=== PATIENT | male | born 1955 | race Caucasian/White ===

== ENCOUNTER → 2022-11-28 | Outpatient (CLI) | payer OTHER ==
--- NOTE | 2022-11-28 11:33 | FL ---
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 The cardiomedias tinal silhouette is within normal limits. There is elevation of the left hemidiaphragm. This is stab le and compared to previous chest radiograph. The left diaphragm contracts during inspiration. Both hemidiaphragms move together. Normal excursion is demonstrated of the left hemidiaphragm. The right diaphragm contracts during inspiration. Both hemidiaphragms move together. Normal excursion is demonstrated of the right hemidiaphragm. IMPRESSION: Normal sniff test.
== END | disposition home or self-care (01) ==
LOC: RADUSWWP 09:40
PROVIDERS: ATTEND Thoracic Surgery (Cardiothoracic Vascular Surgery)
DX: J98.6 Disorders of diaphragm (principal)
CPT/HCPCS: 76000

== ENCOUNTER 2024-05-11 06:14 | Emergency (ER) | payer MEDICARE ==
--- NOTE | 2024-05-11 06:44 | ED ---
General Adult HPI - General Chief complaint: Urogenital Stated complaint: UTI Time Seen by Provider: 05/11/24 06:16 Source: patient, EMS, RN notes reviewed Mode of arrival: EMS Limitations: no limitations - History of Present Illness Initial comments: 68-year-old male presents emergency department with chief complaint of dysuria, shaking chills. Patient states that this started last night. States he had uncontrollable states then he had the urge to urinate states it burned. States he did have some discomfort in his back but he states he always has back pain secondary to patient denies any localized abdominal pain no cough or cold-like symptoms at this time. He has not take anything for any recent fever. - Related Data Home Medications Medication Instructions Recorded Confirmed Cyclobenzaprine [Flexeril] 5 mg PO HS 05/11/24 05/11/24 Magnesium Oxide [Magox 400] 400 mg PO HS 05/11/24 05/11/24 Previous Rx's Medication Instructions Recorded Ciprofloxacin HCl [Cipro] 500 mg PO Q12HR #20 tablet 05/11/24 Allergies Allergy/AdvReac Type Severity Reaction Status Date / Time No Known Allergies Allergy Verified 05/11/24 09:43 Review of Systems ROS Statement: Those systems with pertinent positive or pertinent negative responses have been documented in the HPI. ROS Other: All systems not noted in ROS Statement are negative. Past Medical History Additional Past Medical History / Comment(s): TBI History of Any Multi-Drug Resistant Organisms: None Reported Additional Past Surgical History / Comment(s): Left knee sx. Smoking Status: Former smoker Past Alcohol Use History: None Reported Past Drug Use History: None Reported General Exam Limitations: no limitations General appearance: alert, in no apparent distress Head exam: Present: atraumatic, normocephalic, normal inspection Eye exam: Present: normal appearance, PERRL, EOMI. Absent: scleral icterus, conjunctival injection, periorbital swelling ENT exam: Present: normal exam, normal oropharynx, mucous membranes moist Neck exam: Present: normal inspection, full ROM. Absent: tenderness, meningismus, lymphadenopathy Respiratory exam: Present: normal lung sounds bilaterally. Absent: respiratory distress, wheezes, rales, rhonchi, stridor Cardiovascular Exam: Present: normal rhythm, tachycardia, normal heart sounds. Absent: systolic murmur, diastolic murmur, rubs, gallop, clicks GI/Abdominal exam: Present: soft, normal bowel sounds. Absent: distended, tenderness, guarding, rebound, rigid Back exam: Absent: CVA tenderness (R), CVA tenderness (L) Neurological exam: Present: alert, oriented X3 Course Vital Signs 05/11/24 05/11/24 05/11/24 06:17 06:46 07:25 Temperature 97.8 F 99.3 F Pulse Rate 106 H 90 Respiratory 18 17 Rate Blood Pressure 135/76 135/58 O2 Sat by Pulse 98 98 Oximetry 05/11/24 05/11/24 05/11/24 08:18 10:09 10:52 Temperature 98.5 F 98.2 F 98.3 F Pulse Rate 89 86 90 Respiratory 18 18 17 Rate Blood Pressure 113/58 105/54 106/62 O2 Sat by Pulse 97 96 97 Oximetry Medical Decision Making - Medical Decision Making Was pt. sent in by a medical professional or institution (, PA, WELLHEAD PUMPER, urgent care, hospital, or care home...) When possible be specific @ -No Did you speak to anyone other than the patient for history (EMS, parent, family, police, friend...)? What history was obtained from this source @ -No Did you review nursing and triage notes (agree or disagree)? Why? @ -I reviewed and agree with nursing and triage notes Were old charts reviewed (outside hosp., previous admission, EMS record, old EKG, old radiological studies, urgent care reports/EKG's, care home records)? Report findings @ -No old charts were reviewed Differential Diagnosis (chest pain, altered mental status, abdominal pain women, abdominal pain men, vaginal bleeding, weakness, fever, dyspnea, syncope, headache, dizziness, GI bleed, back pain, seizure, CVA, palpatations, mental he alth, musculoskeletal)? @ -Differential Abdominal Pain Men: Appendicitis, cholecystitis, diverticulosis, ischemic bowel, pancreatitis, hepatitis, UTI, gastroenteritis, AAA, incarcerated hernia, bowel obstruction, constipation, inflammatory bowel, hepatitis, peptic ulcer disease, splenic infarction, perforated viscus, testicular torsion, this is not meant to be an all-inclusive list EKG interpreted by me (3pts min.). @ -None X-rays interpreted by me (1pt min.). @ -None done CT interpreted by me (1pt min.). @ -None done U/S interpreted by me (1pt. min.). @ -None done What testing was considered but not performed or refused? (CT, X-rays, U/S, labs)? Why? @ -None What meds were considered but not given or refused? Why? @ -None Did you discuss the management of the patient with other professionals (professionals i.e. Dr., PA, WELLHEAD PUMPER, lab, RT, psych nurse, social media job titles, sales relationship manager, teacher, light armored vehicle officer, family preservation caseworker)? Give summary @ -No Was smoking cessation discussed for >3mins.? @ -No Was critical care preformed (if so, how long)? @ -No Were there social determinants of health that impacted care today? How? (Homelessness, low income, unemployed, alcoholism, drug addiction, transportation, low edu. Level, literacy, decrease access to med. care, snf, rehab)? @ -No Was there de-escalation of care discussed even if they declined (Discuss DNR or withdrawal of care, Hospice)? DNR status @ -No What co-morbidities impacted this encounter? (DM, HTN, Smoking, COPD, CAD, Cancer, CVA, ARF, Chemo, Hep., AIDS, mental health diagnosis, sleep apnea, morbid obesity)? @ -None Was patient admitted / discharged? Hospital course, mention meds given and route, prescriptions, significant lab abnormalities, going to OR and other pertinent info. @ -Discharge patient found to have evidence of urinary tract infection patient does not have any significant leukocytosis or lactic acidosis. Patient feels greatly improved this time patient offered admission patient declined states he feels comfortable discharge as he has no current complaints. Patient was given Rocephin prior to discharge. Blood cultures were drawn. Undiagnosed new problem with uncertain prognosis? @ -No Drug Therapy requiring intensive monitoring for toxicity (Heparin, Nitro, Insulin, Cardizem)? @ -No Were any procedures done? @ -No Diagnosis/symptom? @ -UTI Acute, or Chronic, or Acute on Chronic? @ -Acute Uncomplicated (without systemic symptoms) or Complicated (systemic symptoms)? @ -complicated Side effects of treatment? @ -No Exacerbation, Progression, or Severe Exacerbation? @ -No Poses a threat to life or bodily function? How? (Chest pain, [place], [place], pneumonia, PE, COPD, DKA, ARF, appy, cholecystitis, CVA, Diverticulitis, Homicidal, Suicidal, threat to staff... and all critical care pts) @ -No - Lab Data Result diagrams: 05/11/24 06:50 05/11/24 06:50 Lab Results 05/11/24 05/11/24 05/11/24 Range/Units 06:50 06:50 06:50 WBC 9.9 (3.8-10.6) k/uL RBC 4.72 (4.30-5.90) m/uL Hgb 14.8 (13.0-17.5) gm/dL Hct 42.2 (39.0-53.0) % MCV 89.4 (80.0-100.0) fL MCH 31.4 (25.0-35.0) pg MCHC 35.1 (31.0-37.0) g/dL RDW 12.4 (11.5-15.5) % Plt Count 90 L (150-450) k/uL MPV 7.8 Neutrophils % 94 % Lymphocytes % 1 % Monocytes % 3 % Eosinophils % 0 % Basophils % 0 % Neutrophils # 9.3 H (1.3-7.7) k/uL Lymphocytes # 0.1 L (1.0-4.8) k/uL Monocytes # 0.3 (0-1.0) k/uL Eosinophils # 0.0 (0-0.7) k/uL Basophils # 0.0 (0-0.2) k/uL Manual Slide Review Performed RBC Morphology Normal Sodium 131 L (137-145) mmol/L Potassium 4.0 (3.5-5.1) mmol/L Chloride 100 (98-107) mmol/L Carbon Dioxide 22 (22-30) mmol/L Anion Gap 9 mmol/L BUN 35 H (9-20) mg/dL Creatinine 1.00 (0.66-1.25) mg/dL Est GFR (CKD-EPI)AfAm 88 (>60 ml/min/1.73 sqM) Est GFR (CKD-EPI)NonAf 76 (>60 ml/min/1.73 sqM) Glucose 144 H (74-99) mg/dL Plasma Lactic Acid [place] 1.2 (0.7-2.0) mmol/L Calcium 8.8 (8.4-10.2) mg/dL Total Bilirubin 1.9 H (0.2-1.3) mg/dL AST 25 (17-59) U/L ALT 21 (4-49) U/L Alkaline Phosphatase 68 (38-126) U/L Total Protein 5.8 L (6.3-8.2) g/dL Albumin 3.5 (3.5-5.0) g/dL Lipase 46 (23-300) U/L Urine Color Urine Appearance (Clear) Urine pH (5.0-8.0) Ur Specific [place] (1.001-1.035) Urine Protein (Negative) Urine Glucose (UA) (Negative) Urine Ketones (Negative) Urine Blood (Negative) Urine Nitrite (Negative) Urine Bilirubin (Negative) Urine Urobilinogen (<2.0) mg/dL Ur Leukocyte Esterase (Negative) Urine RBC (0-5) /hpf Urine WBC (0-5) /hpf Urine WBC Clumps (None) /hpf Ur Squamous Epith Cells (0-4) /hpf Urine Bacteria (None) /hpf Urine Mucus (None) /hpf 05/11/24 Range/Units 09:55 WBC (3.8-10.6) k/uL RBC (4.30-5.90) m/uL Hgb (13.0-17.5) gm/dL Hct (39.0-53.0) % MCV (80.0-100.0) fL MCH (25.0-35.0) pg MCHC (31.0-37.0) g/dL RDW (11.5-15.5) % Plt Count (150-450) k/uL MPV Neutrophils % % Lymphocytes % % Monocytes % % Eosinophils % % Basophils % % Neutrophils # (1.3-7.7) k/uL Lymphocytes # (1.0-4.8) k/uL Monocytes # (0-1.0) k/uL Eosinophils # (0-0.7) k/uL Basophils # (0-0.2) k/uL Manual Slide Review RBC Morphology Sodium (137-145) mmol/L Potassium (3.5-5.1) mmol/L Chloride (98-107) mmol/L Carbon Dioxide (22-30) mmol/L Anion Gap mmol/L BUN (9-20) mg/dL Creatinine (0.66-1.25) mg/dL Est GFR (CKD-EPI)AfAm (>60 ml/min/1.73 sqM) Est GFR (CKD-EPI)NonAf (>60 ml/min/1.73 sqM) Glucose (74-99) mg/dL Plasma Lactic Acid [place] (0.7-2.0) mmol/L Calcium (8.4-10.2) mg/dL Total Bilirubin (0.2-1.3) mg/dL AST (17-59) U/L ALT (4-49) U/L Alkaline Phosphatase (38-126) U/L Total Protein (6.3-8.2) g/dL Albumin (3.5-5.0) g/dL Lipase (23-300) U/L Urine Color Yellow Urine Appearance Cloudy (Clear) Urine pH 5.5 (5.0-8.0) Ur Specific [place] 1.015 (1.001-1.035) Urine Protein Trace H (Negative) Urine Glucose (UA) Negative (Negative) Urine Ketones Trace H (Negative) Urine Blood Moderate H (Negative) Urine Nitrite Negative (Negative) Urine Bilirubin Negative (Negative) Urine Urobilinogen <2.0 (<2.0) mg/dL Ur Leukocyte Esterase Large H (Negative) Urine RBC 8 H (0-5) /hpf Urine WBC >182 H (0-5) /hpf Urine WBC Clumps Many H (None) /hpf Ur Squamous Epith Cells <1 (0-4) /hpf Urine Bacteria Moderate H (None) /hpf Urine Mucus Few H (None) /hpf Disposition Clinical Impression: UTI (urinary tract infection) Disposition: HOME SELF-CARE Condition: Stable Instructions (If sedation given, give patient instructions): Urinary Tract Infection in Men (ED) Additional Instructions: Please return to the Emergency Department if symptoms worsen or any other concerns. Prescriptions: Ciprofloxacin HCl [Cipro] 500 mg PO Q12HR #20 tablet Is patient prescribed a controlled substance at d/c from ED?: No Referrals: Nonstaff,Physician [Primary Care Provider] - 1-2 days Time of Disposition: 10:37
[2024-05-11] MEDS: ACETAMINOPHEN TAB 500 MG TAB PO STA (06:51)
[2024-05-11] MEDS: SODIUM CHLORIDE 0.9% 1,000 ML IV SCH (06:52)
[2024-05-11 06:58] LABS: Basophils % (A) 0 %; Eosinophils % (A) 0 %; HCT 42.2 % (39.0-53.0); HGB 14.8 gm/dL (13.0-17.5); Lymphocytes # (A) 0.1 k/uL (1.0-4.8); Lymphocytes % (A) 1 %; MCH 31.4 pg (25.0-35.0); MCHC 35.1 g/dL (31.0-37.0); MCV 89.4 fL (80.0-100.0); Mean Platelet Volume 7.8; Monocytes # (A) 0.3 k/uL (0-1.0); Monocytes % (A) 3 %; Neutrophils # (A) 9.3 k/uL (1.3-7.7); Neutrophils % (A) 94 %; RBC 4.72 m/uL (4.30-5.90); RDW 12.4 % (11.5-15.5); WBC 9.9 k/uL (3.8-10.6)
[2024-05-11 07:07] LABS: ALT 21 U/L (4-49); AST 25 U/L (17-59); African American GFR (CKD) 88 (>60 ml/min/1.73 sqM); Albumin 3.5 g/dL (3.5-5.0); Alkaline Phosphatase 68 U/L (38-126); Anion Gap 9 mmol/L; Blood Urea Nitrogen 35 mg/dL (9-20); Calcium 8.8 mg/dL (8.4-10.2); Carbon Dioxide 22 mmol/L (22-30); Chloride 100 mmol/L (98-107); Glucose 144 mg/dL (74-99); Lipase 46 U/L (23-300); Non-African American GFR(CKD) 76 (>60 ml/min/1.73 sqM); Sodium 131 mmol/L (137-145); Total Bilirubin 1.9 mg/dL (0.2-1.3); Total Protein 5.8 g/dL (6.3-8.2)
[2024-05-11 08:54] LABS: Platelet Count 90 k/uL (150-450)
[2024-05-11 09:03] LABS: RBC Morphology Normal
[2024-05-11 10:13] LABS: Appearance,Urine Cloudy (Clear); Bacteria,Urine Moderate /hpf; Bilirubin,Urine Negative (Negative); Blood,Urine Moderate (Negative); Color,Urine Yellow; Glucose,Urine (UA) Negative (Negative); Ketones,Urine Trace (Negative); Leukocyte Esterase,Urine Large (Negative); Mucus,Urine Few /hpf; Nitrite,Urine Negative (Negative); PH, Urine 5.5 (5.0-8.0); Protein,Urine Trace (Negative); RBC,Urine 8 /hpf (0-5); Specific Gravity,Urine 1.015 (1.001-1.035); Squamous Epithelial Cell,Urine <1 /hpf (0-4); Urobilinogen,Urine <2.0 mg/dL (<2.0); WBC,Urine >182 /hpf (0-5)
[2024-05-11] MEDS: cefTRIAXone IN SWFI 1,000 MG/10 ML SYRINGE IVP STA (10:38)
[2024-05-11 10:54] VITALS: BP 106/62; PULSE 90; RESP 17; TEMP 98.3
== END 2024-05-11 10:54 | disposition home or self-care (01) ==
LOC: EC 06:14
DX: N39.0 Urinary tract infection, site not specified (principal); Z87.891 Personal history of nicotine dependence
CPT/HCPCS: 36415; 80053; 83605; 83690; 85025; 81001; 87040; 87086; 99284; 96374; 96361 ×3; J0696

== ENCOUNTER 2024-05-12 01:29 | Inpatient (IN) | payer MEDICARE, OTHER ==
--- NOTE | 2024-05-12 01:55 | ED ---
Recheck HPI - General Chief Complaint: Recheck/Abnormal Lab/Rx Stated Complaint: Recheck Time Seen by Provider: 05/12/24 01:38 Source: patient, RN notes reviewed Mode of arrival: ambulatory Limitations: no limitations - History of Present Illness Initial Comments: This is a 68-year-old male with no reported medical conditions presents the emergency department for reevaluation. Patient states that he was reported to contact Emergency Department for positive blood cultures of E. coli.. Patient was evaluated earlier in the day with chief complaint of dysuria, shaking and chills. Patient states that yesterday evening he began experiencing uncontrollable shaking with a period of time with uncontrollable urination with dysuria. Currently states that he has left-sided flank pain and has been experiencing dysuria. - Related Data Home Medications Medication Instructions Recorded Confirmed Cyclobenzaprine [Flexeril] 5 mg PO HS 05/11/24 05/11/24 Magnesium Oxide [Magox 400] 400 mg PO HS 05/11/24 05/11/24 Previous Rx's Medication Instructions Recorded Ciprofloxacin HCl [Cipro] 500 mg PO Q12HR #20 tablet 05/11/24 Allergies Allergy/AdvReac Type Severity Reaction Status Date / Time No Known Allergies Allergy Verified 05/12/24 01:34 Review of Systems ROS Statement: Those systems with pertinent positive or pertinent negative responses have been documented in the HPI. ROS Other: All systems not noted in ROS Statement are negative. Past Medical History Additional Past Medical History / Comment(s): TBI History of Any Multi-Drug Resistant Organisms: None Reported Additional Past Surgical History / Comment(s): Left knee sx. Smoking Status: Former smoker Past Alcohol Use History: None Reported Past Drug Use History: None Reported General Exam Limitations: no limitations General appearance: alert, in no apparent distress ENT exam: Present: normal exam, mucous membranes moist Neck exam: Present: normal inspection. Absent: tenderness, meningismus, lymphadenopathy Respiratory exam: Present: normal lung sounds bilaterally. Absent: respiratory distress, wheezes, rales, rhonchi, stridor Cardiovascular Exam: Present: regular rate, normal rhythm, normal heart sounds. Absent: systolic murmur, diastolic murmur, rubs, gallop, clicks GI/Abdominal exam: Present: soft, normal bowel sounds. Absent: distended, tenderness, guarding, rebound, rigid Extremities exam: Present: normal inspection, full ROM, normal capillary refill. Absent: tenderness, pedal edema, joint swelling, calf tenderness Back exam: Present: normal inspection, CVA tenderness (L). Absent: CVA tenderness (R) Neurological exam: Present: alert, oriented X3, CN II-XII intact Course Vital Signs 05/12/24 05/12/24 01:31 02:58 Temperature 97.4 F L 97.9 F Pulse Rate 89 76 Respiratory 18 18 Rate Blood Pressure 128/72 113/67 O2 Sat by Pulse 97 99 Oximetry Medical Decision Making - Medical Decision Making Was pt. sent in by a medical professional or institution (, PA, BLOW DOWN HELPER, urgent care, hospital, or half-way...) When possible be specific @ -No Did you speak to anyone other than the patient for history (EMS, parent, family, police, friend...)? What history was obtained from this source @ -No Did you review nursing and triage notes (agree or disagree)? Why? @ -I reviewed and agree with nursing and triage notes Were old charts reviewed (outside hosp., previous admission, EMS record, old EKG, old radiological studies, urgent care reports/EKG's, half-way records)? Report findings @ -Reviewed patient's visit note from 05/11/2024 where he was discharged with diagnosis of urinary tract infection. Differential Diagnosis (chest pain, altered mental status, abdominal pain women, abdominal pain men, vaginal bleeding, weakness, fever, dyspnea, syncope, headache, dizziness, GI bleed, back pain, seizure, CVA, palpatations, mental health, musculoskeletal)? @ -Differential Abdominal Pain Men: Appendicitis, cholecystitis, diverticulosis, ischemic bowel, pancreatitis, hepatitis, UTI, gastroenteritis, AAA, incarcerated hernia, bowel obstruction, constipation, inflammatory bowel, hepatitis, peptic ulcer disease, splenic inf arction, perforated viscus, testicular torsion, this is not meant to be an all- inclusive list EKG interpreted by me (3pts min.). @ -None X-rays interpreted by me (1pt min.). @ -None done CT interpreted by me (1pt min.). @ -None done U/S interpreted by me (1pt. min.). @ -None done What testing was considered but not performed or refused? (CT, X-rays, U/S, labs)? Why? @ -None What meds were considered but not given or refused? Why? @ -None Did you discuss the management of the patient with other professionals (professionals i.e. , PA, BLOW DOWN HELPER, lab, RT, psych nurse, social science research assistant, practice managers, teacher, audit officer, lining caser)? Give summary @ -spoke with Dr. Dickens, who has agreed to admit the patient and continue on IV antibiotics. Was smoking cessation discussed for >3mins.? @ -No Was critical care preformed (if so, how long)? @ -No Were there social determinants of health that impacted care today? How? (Homelessness, low income, unemployed, alcoholism, drug addiction, transportation, low edu. Level, literacy, decrease access to med. care, shelter, rehab)? @ -No Was there de-escalation of care discussed even if they declined (Discuss DNR or withdrawal of care, Hospice)? DNR status @ -No What co-morbidities impacted this encounter? (DM, HTN, Smoking, COPD, CAD, Cancer, CVA, ARF, Chemo, Hep., AIDS, mental health diagnosis, sleep apnea, morbid obesity)? @ -None Was patient admitted / discharged? Hospital course, mention meds given and route, prescriptions, significant lab abnormalities, going to OR and other pertinent info. @ -Admitted. 68-year-old male presenting for positive blood cultures. Initial vitals were stable. Labs are ordered. Patient started on IV ciprofloxacin. Patient admitted to internal medicine with infectious disease on consult. Case discussed with Dr. Saleem Undiagnosed new problem with uncertain prognosis? @ -No Drug Therapy requiring intensive monitoring for toxicity (Heparin, Nitro, Insulin, Cardizem)? @ -No Were any procedures done? @ -No Diagnosis/symptom? @ -Bacteremia, pyelonephritis Acute, or Chronic, or Acute on Chronic? @ -Acute Uncomplicated (without systemic symptoms) or Complicated (systemic symptoms)? @ -Complicated Side effects of treatment? @ -No Exacerbation, Progression, or Severe Exacerbation? @ -No Poses a threat to life or bodily function? How? (Chest pain, [place], [place], pneumonia, PE, COPD, DKA, ARF, appy, cholecystitis, CVA, Diverticulitis, Homicidal, Suicidal, threat to staff... and all critical care pts) @ -No - Lab Data Result diagrams: 05/12/24 02:11 05/12/24 02:11 Lab Results 05/12/24 05/12/24 Range/Units 02:11 02:11 WBC 5.7 (3.8-10.6) k/uL RBC 4.35 (4.30-5.90) m/uL Hgb 13.5 (13.0-17.5) gm/dL Hct 39.3 (39.0-53.0) % MCV 90.2 (80.0-100.0) fL MCH 30.9 (25.0-35.0) pg MCHC 34.3 (31.0-37.0) g/dL RDW 12.4 (11.5-15.5) % Plt Count 75 L (150-450) k/uL MPV 8.1 Neutrophils % 92 % Lymphocytes % 4 % Monocytes % 3 % Eosinophils % 0 % Basophils % 0 % Neutrophils # 5.2 (1.3-7.7) k/uL Lymphocytes # 0.2 L (1.0-4.8) k/uL Monocytes # 0.2 (0-1.0) k/uL Eosinophils # 0.0 (0-0.7) k/uL Basophils # 0.0 (0-0.2) k/uL Sodium 131 L (137-145) mmol/L Potassium 4.2 (3.5-5.1) mmol/L Chloride 102 (98-107) mmol/L Carbon Dioxide 23 (22-30) mmol/L Anion Gap 6 mmol/L BUN 30 H (9-20) mg/dL Creatinine 0.89 (0.66-1.25) mg/dL Est GFR (CKD-EPI)AfAm >90 (>60 ml/min/1.73 sqM) Est GFR (CKD-EPI)NonAf 87 (>60 ml/min/1.73 sqM) Glucose 112 H (74-99) mg/dL Calcium 8.5 (8.4-10.2) mg/dL Total Bilirubin 1.2 (0.2-1.3) mg/dL AST 31 (17-59) U/L ALT 23 (4-49) U/L Alkaline Phosphatase 71 (38-126) U/L Total Protein 5.2 L (6.3-8.2) g/dL Albumin 2.9 L (3.5-5.0) g/dL Disposition Clinical Impression: Bacteremia, Pyelonephritis Disposition: ADMITTED IP TO THIS [facility] Condition: Serious Referrals: Nonstaff,Physician [Primary Care Provider] - 1-2 days Decision to Admit Reason: Admit from EC Decision Date: 05/12/24 Decision Time: 02:50
[2024-05-12 02:34] LABS: Basophils % (A) 0 %; Eosinophils % (A) 0 %; HCT 39.3 % (39.0-53.0); HGB 13.5 gm/dL (13.0-17.5); Lymphocytes # (A) 0.2 k/uL (1.0-4.8); Lymphocytes % (A) 4 %; MCH 30.9 pg (25.0-35.0); MCHC 34.3 g/dL (31.0-37.0); MCV 90.2 fL (80.0-100.0); Mean Platelet Volume 8.1; Monocytes # (A) 0.2 k/uL (0-1.0); Monocytes % (A) 3 %; Neutrophils # (A) 5.2 k/uL (1.3-7.7); Neutrophils % (A) 92 %; RBC 4.35 m/uL (4.30-5.90); RDW 12.4 % (11.5-15.5); WBC 5.7 k/uL (3.8-10.6)
[2024-05-12] MEDS ORDERED: ONDANSETRON 4 MG/2 ML VIAL IVP PRN (02:57)
[2024-05-12] MEDS ORDERED: IBUPROFEN 400 MG TAB PO PRN (02:57)
[2024-05-12] MEDS ORDERED: NALOXONE 0.4 MG/ML 1 ML VIAL IV PRN (02:57)
[2024-05-12 03:12] LABS: ALT 23 U/L (4-49); AST 31 U/L (17-59); African American GFR (CKD) >90 (>60 ml/min/1.73 sqM); Albumin 2.9 g/dL (3.5-5.0); Alkaline Phosphatase 71 U/L (38-126); Anion Gap 6 mmol/L; Blood Urea Nitrogen 30 mg/dL (9-20); Calcium 8.5 mg/dL (8.4-10.2); Carbon Dioxide 23 mmol/L (22-30); Chloride 102 mmol/L (98-107); Glucose 112 mg/dL (74-99); Non-African American GFR(CKD) 87 (>60 ml/min/1.73 sqM); Platelet Count 75 k/uL (150-450); Potassium 4.2 mmol/L (3.5-5.1); Sodium 131 mmol/L (137-145); Total Bilirubin 1.2 mg/dL (0.2-1.3); Total Protein 5.2 g/dL (6.3-8.2)
[2024-05-12] MEDS: SODIUM CHLORIDE 0.9% 1,000 ML IV SCH (04:00)
[2024-05-12] MEDS: CIPROFLOXACIN/DEXTROSE PMX 400 MG in DEXTROSE/WATER 1 200ML.BAG IVPB SCH (04:04)
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
[2024-05-12] MEDS: ACETAMINOPHEN TAB 325 MG TAB PO PRN (06:40)
[2024-05-12 06:41] LABS: Influenza A Not Detected (Not Detectd); Influenza B Not Detected (Not Detectd); RSV Not Detected (Not Detectd)
[2024-05-12] MEDS ORDERED: ENOXAPARIN 40 MG/0.4 ML SYRINGE SQ SCH (09:00)
[2024-05-12] MEDS: KETOROLAC 15 MG/ML 1 ML VIAL IVP PRN (11:49)
[2024-05-12] MEDS ORDERED: IOPAMIDOL CONTRAST (ORAL USE) VIAL PO PRN (11:57)
[2024-05-12] MEDS: MORPHINE SULFATE 4 MG/ML SYRINGE IV PRN (12:49)
--- NOTE | 2024-05-12 18:27 | CT ---
EXAMINATION TYPE: CT abdomen pelvis w con DATE OF EXAM: 05/12/2024 COMPARISON: NONE CLINICAL INDICATION: Male, 68 years old with history of bacteremia , right lower abd and hip pain, ba cteremia , right lower abd and hip pain, TECHNIQUE: CT scan of the abdomen and pelvis is performed with IV Contrast, patient injected with 100ml mL of Is ovue 300., (none if empty) Oral contrast used: with Oral Contrast (none if empty) CT DLP: 954.6 mGycm, Automated exposure control for dose reduction was used. FINDINGS: LUNG BASES: There is tiny left pleural effusion. There is an adjacent opacity favoring atelectasis. T here is mild bibasilar linear scarring and/or atelectasis. There is 8 mm calcified nodule or benign g ranuloma right lung base axial image 18. LIVER/GB: There are multiple thin-walled cysts scattered throughout the liver. There are additional s ubcentimeter low dense lesions that are too small to further characterize. No biliary dilatation. Gal lbladder has some distended margins and folds. No surrounding ill-defined fluid is present. PANCREAS: Pancreatic duct is mildly dilated in the head up to 6 mm axial image 30 and coronal image 45. SPLEEN: Splenomegaly is seen measuring 15.7 centimeters long axis axial image 23. Multiple punctate c alcifications are seen consistent with products of old granulomatous disease. ADRENALS: No significant abnormality is seen. KIDNEYS: Symmetric cortical medullary uptake and excretion without hydronephrosis seen bilaterally. BOWEL: Oral contrast extends to level of the right colon. No abnormal small or large bowel dilatation is seen. Appendix is within normal limits from the cecum. Some redundancy of the sigmoid colon. PROSTATE/SEMINAL VESICLES: Enlarged prostate consistent with BPH is present. LYMPH NODES: No greater than 1cm abdominal or pelvic lymph nodes are appreciated. OSSEOUS STRUCTURES: Slight scoliotic curvature is seen. Moderate narrowing of both hip joints. OTHER: Small to moderate amount of free fluid in the pelvis axial image 86. IMPRESSION: 1. [id number] amount of free fluid in the pelvis is abnormal finding. Etiology uncertain. Tiny left pleural effusion also noted. 2. Mild dilatation of the proximal pancreatic duct. Possible pancreatic divisum or other etiology. Ad vise further nonurgent investigation with MRI/MRCP. 3. Splenomegaly is seen and may warrant further nonemergent clinical workup. 4. Prominent gallbladder. Acute cholecystitis is not entirely excluded. Consider ultrasound follow-up to further evaluate. 5. Other incidental findings are noted as detailed above. [facility], , 05/12/2024 6:24 PM
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
[2024-05-13 06:23] LABS: HCT 39.7 % (39.0-53.0); HGB 13.4 gm/dL (13.0-17.5); MCH 30.5 pg (25.0-35.0); MCHC 33.7 g/dL (31.0-37.0); MCV 90.4 fL (80.0-100.0); Mean Platelet Volume 8.1; RBC 4.39 m/uL (4.30-5.90); RDW 12.3 % (11.5-15.5); WBC 2.8 k/uL (3.8-10.6)
[2024-05-13 06:24] LABS: Platelet Count 78 k/uL (150-450)
[2024-05-13 07:03] LABS: African American GFR (CKD) >90 (>60 ml/min/1.73 sqM); Anion Gap 7 mmol/L; Blood Urea Nitrogen 23 mg/dL (9-20); Calcium 8.1 mg/dL (8.4-10.2); Carbon Dioxide 21 mmol/L (22-30); Chloride 99 mmol/L (98-107); Glucose 93 mg/dL (74-99); Non-African American GFR(CKD) >90 (>60 ml/min/1.73 sqM); Potassium 4.1 mmol/L (3.5-5.1); Sodium 127 mmol/L (137-145)
--- NOTE | 2024-05-13 08:36 | US ---
EXAMINATION TYPE: US gallbladder DATE OF EXAM: 05/13/2024 COMPARISON: NONE CLINICAL INDICATION: Male, 68 years old with history of abnormal ct ap; assess GB, nauseous TECHNIQUE: Grayscale and color Doppler imaging of the right upper quadrant was performed. FINDINGS: EXAM MEASUREMENTS: Liver Length: 15.2 cm Gallbladder Wall: 0.3 cm CBD: 0.6 cm Right Kidney: 11.9 x 4.7 x 5.2 cm HUMAN RESOURCES BENEFITS ASSISTANT NOTES:intercostal imaging due to bowel gas Pancreas: 0.7cm dilated duct seen on CT also Liver: multiple cystic areas, largest = 3.3 x 2.5 x 2.1cm Gallbladder: fold seen, wnl Evidence for sonographic Workman's sign: no CBD: wnl Right Kidney: wnl IMPRESSION: 1. Gallbladder appears within normal limits. No evidence for acute process. 2. Simple appearing hepatic cysts. [facility], , 05/13/2024 8:33 AM
[2024-05-13] MEDS: oxyCODONE-APAP 7.5-325MG 1 EACH TAB PO SCH (11:16)
--- NOTE | 2024-05-13 13:13 | P.PN ---
Subjective Progress Note Date: 05/13/24 Patient was seen and examined. He reports 10/10 right hip and flank pain. Urinary symptoms improved. Tmax 100.6 over the past 24H. CBC, BMP significant for WBC 2.8, PLt 78, Na 127, bicarb 21, BUN 23, Ca 8.1. CT AP done yesterday showing granuloma in the R lung, liver cysts, and splenomegaly. GB US shows no biliary ductal dilation. Maintained on Rocephin 2g IV QD. Most recent BP 135/68, HR 93. General: non toxic, no distress, appears at stated age Derm: warm, dry Head: atraumatic, normocephalic, symmetric Mouth: no lip lesion, mucus membranes moist Cardiovascular: S1S2 reg, no murmur Lungs: Decreased BS bilaterally, no rales , no accessory muscle use Ext: no gross muscle atrophy, no edema, no contractures Neuro: no focal neuro deficits Psych: Alert and oriented. Based on my assessment of this patient, this patient meets a high complexity level of care. Sepsis due to E. coli pyelonephritis and bacteremia: Continue Rocephin 2g IV QD. Follow final UCx + BCx. Telemetry monitoring. ID on board. Hyponatremia: Worsened with IVF. Order serum Osm, UOsm, Silvano. Thrombocytopenia: Unknown etiology. Possible reactive. Outpatient workup. Splenomegaly: Unknown etiology. Outpatient workup. Liver cysts: Unknown etiology. Outpatient workup. Granulomatous pulmonary nodule: Unknown etiology. Outpatient workup. CODE STATUS: FULL CODE. DVT Prophylaxis: SCD (due to thrombocytopenia) GI Prophylaxis: Designated medical POA if patient is not able to make medical decisions for themselves: I have reviewed the following hearing consultant notes: ID note. I have reviewed the results of the following tests: CBC, BMP, CT AP, GB US. I have ordered the following tests: CBC, BMP, Serum Osm, Urine Osm, Silvano. I have discussed the care of this patient with the following independent historian: I have independently interpreted the following test below: I have discussed the management of this patient with the following physician: Objective - Vital Signs Vital signs: Vital Signs Temp 99.8 F H 05/13/24 12:37 Pulse 93 05/13/24 12:37 Resp 16 05/13/24 12:37 BP 135/68 05/13/24 12:37 Pulse Ox 94 L 05/13/24 12:37 FiO2 Intake & Output 05/12/24 05/13/24 05/13/24 18:59 06:59 18:59 Output Total 500 Balance -500 Weight 84.5 kg Output: Urine 500 Other: Voiding Method Urinal Urinal - Labs CBC & Chem 7: 05/13/24 05:46 05/13/24 05:46 Labs: Abnormal Lab Results - Last 24 Hours (Table) 05/13/24 05/13/24 Range/Units 05:46 05:46 WBC 2.8 L (3.8-10.6) k/uL Plt Count 78 L (150-450) k/uL Sodium 127 L (137-145) mmol/L Carbon Dioxide 21 L (22-30) mmol/L BUN 23 H (9-20) mg/dL Calcium 8.1 L (8.4-10.2) mg/dL
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
[2024-05-14 07:26] VITALS: RESP 16
[2024-05-14 10:53] LABS: HCT 38.1 % (39.0-53.0); MCV 91.2 fL (80.0-100.0); Mean Platelet Volume 7.7; RBC 4.18 m/uL (4.30-5.90); RDW 12.5 % (11.5-15.5); WBC 3.8 k/uL (3.8-10.6)
[2024-05-14 10:55] LABS: Platelet Count 81 k/uL (150-450)
[2024-05-14 10:57] LABS: African American GFR (CKD) >90 (>60 ml/min/1.73 sqM); Anion Gap 4 mmol/L; Blood Urea Nitrogen 17 mg/dL (9-20); Calcium 8.1 mg/dL (8.4-10.2); Carbon Dioxide 27 mmol/L (22-30); Chloride 97 mmol/L (98-107); Glucose 140 mg/dL (74-99); Non-African American GFR(CKD) >90 (>60 ml/min/1.73 sqM); Potassium 3.8 mmol/L (3.5-5.1); Sodium 128 mmol/L (137-145)
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
[2024-05-14 14:02] VITALS: BP 135/76; PULSE 91; TEMP 98.7
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
== END 2024-05-14 13:41 | disposition home or self-care (01) | DRG 872 ==
LOC: EC 01:29 → OBSVTOIN 03:43 → 5NMEDONC 03:43
PROVIDERS: ADMIT Internal Medicine; ATTEND Internal Medicine
DX: A41.51 Sepsis due to Escherichia coli [E. coli] (principal); D69.6 Thrombocytopenia, unspecified; J84.10 Pulmonary fibrosis, unspecified; E87.1 Hypo-osmolality and hyponatremia; N12 Tubulo-interstitial nephritis, not specified as acute or chronic; K76.89 Other specified diseases of liver; R32 Unspecified urinary incontinence; R35.0 Frequency of micturition; R16.1 Splenomegaly, not elsewhere classified; K52.9 Noninfective gastroenteritis and colitis, unspecified; Z79.899 Other long term (current) drug therapy; Z87.820 Personal history of traumatic brain injury; Z87.891 Personal history of nicotine dependence
CPT/HCPCS: 36415; 74177; 76705; 80048; 80053; 83605; 83930; 83935; 84300; 85025; 85027; 87636; 96365; 96366; 96375; 96376; 99285

== ENCOUNTER 2024-05-17 10:01 | Emergency (ER) | payer MEDICARE ==
[2024-05-17 10:16] VITALS: BP 115/72; PULSE 105; RESP 18; TEMP 97.9
--- NOTE | 2024-05-17 10:21 | ED ---
General Adult HPI - General Chief complaint: Recheck/Abnormal Lab/Rx Stated complaint: med refill Time Seen by Provider: 05/17/24 10:03 Source: patient, RN notes reviewed Mode of arrival: ambulatory Limitations: no limitations - History of Present Illness Initial comments: 68-year-old male presents emergency department complaint of needing medication refill. Patient states he was advised that when he was discharged if he needed a refill to, emergency department. Patient was admitted for pyelonephritis, back pain. Patient states that no fevers no chills no other complaints he states he is just running out of his pain meds and he is concerned. Patient states he does have follow-up appointment this week. Patient offers no other complaints. - Related Data Home Medications Medication Instructions Recorded Confirmed Cyclobenzaprine [Flexeril] 5 mg PO HS 05/11/24 05/12/24 Magnesium Oxide [Magox 400] 400 mg PO HS 05/11/24 05/12/24 Previous Rx's Medication Instructions Recorded Acetaminophen Tab [Tylenol] 650 mg PO Q6HR PRN tab 05/14/24 Ciprofloxacin HCl [Cipro] 500 mg PO Q12HR 10 Days #20 tab 05/14/24 Ibuprofen [Motrin] 400 mg PO Q6HR PRN tab 05/14/24 oxyCODONE HCL/ACETAMINOPHEN 1 tab PO Q4HR PRN 3 Days #18 tab 05/14/24 [Percocet 10-325 mg] oxyCODONE HCL/ACETAMINOPHEN 1 tab PO Q8H 3 Days #9 tab 05/17/24 [oxyCODONE HCL/ACETAMINOPHEN 5-325] Allergies Allergy/AdvReac Type Severity Reaction Status Date / Time No Known Allergies Allergy Verified 05/17/24 10:16 Review of Systems ROS Statement: Those systems with pertinent positive or pertinent negative responses have been documented in the HPI. ROS Other: All systems not noted in ROS Statement are negative. Past Medical History Past Medical History: GERD/Reflux Additional Past Medical History / Comment(s): TBI, bladder infection, History of Any Multi-Drug Resistant Organisms: None Reported Past Surgical History: Orthopedic Surgery Additional Past Surgical History / Comment(s): Left knee sx. Past Anesthesia/Blood Transfusion Reactions: No Reported Reaction Past Psychological History: PTSD Smoking Status: Former smoker Past Alcohol Use History: None Reported Past Drug Use History: None Reported General Exam Limitations: no limitations General appearance: alert, in no apparent distress Head exam: Present: atraumatic, normocephalic, normal inspection Eye exam: Present: normal appearance, PERRL, EOMI. Absent: scleral icterus, conjunctival injection, periorbital swelling ENT exam: Present: normal exam, normal oropharynx, mucous membranes moist Neck exam: Present: normal inspection, full ROM. Absent: tenderness, meningismus, lymphadenopathy Respiratory exam: Present: normal lung sounds bilaterally. Absent: respiratory distress, wheezes, rales, rhonchi, stridor Cardiovascular Exam: Present: regular rate, normal rhythm, normal heart sounds. Absent: systolic murmur, diastolic murmur, rubs, gallop, clicks GI/Abdominal exam: Present: soft, normal bowel sounds. Absent: distended, tenderness, guarding, rebound, rigid Course Vital Signs 05/17/24 10:13 Temperature 97.9 F Pulse Rate 105 H Respiratory 18 Rate Blood Pressure 115/72 O2 Sat by Pulse 99 Oximetry Medical Decision Making - Medical Decision Making Was pt. sent in by a medical professional or institution (Dr. PA, SPECIAL EDUCATION TEACHER, urgent care, hospital, or jail...) When possible be specific @ -No Did you speak to anyone other than the patient for history (EMS, parent, family, police, friend...)? What history was obtained from this source @ -No Did you review nursing and triage notes (agree or disagree)? Why? @ -I reviewed and agree with nursing and triage notes Were old charts reviewed (outside hosp., previous admission, EMS record, old EKG, old radiological studies, urgent care reports/EKG's, jail records)? Report findings @ -No old charts were reviewed Differential Diagnosis (chest pain, altered mental status, abdominal pain women, abdominal pain men, vaginal bleeding, weakness, fever, dyspnea, syncope, headache, dizziness, GI bleed, back pain, seizure, CVA, palpatations, mental health, musculoskeletal)? @ -Differential Back Pain: Strain, zoster, cauda equina syndrome, epidural abscess, vertebral osteomyelitis, discitis, fracture, subluxation, disc herniation, DJD, spinal stenosis, dissection, AAA, pancreatitis, peptic ulcer disease, pyelonephritis, kidney stone, this is not meant to be an all-inclusive list. EKG interpreted by me (3pts min.). @ -None X-rays interpreted by me (1pt min.). @ -None done CT interpreted by me (1pt min.). @ -None done U/S interpreted by me (1pt. min.). @ -None done What testing was considered but not performed or refused? (CT, X-rays, U/S, labs)? Why? @ -None What meds were considered but not given or refused? Why? @ -None Did you discuss the management of the patient with other professionals (professionals i.e. , PA, SPECIAL EDUCATION TEACHER, lab, RT, psych nurse, psychologist social, sandwich board carrier, teacher, staff submarine warfare officer, case operator)? Give summary @ -No Was smoking cessation discussed for >3mins.? @ -No Was critical care preformed (if so, how long)? @ -No Were there social determinants of health that impacted care today? How? (Homelessness, low income, unemployed, alcoholism, drug addiction, transportation, low edu. Level, literacy, decrease access to med. care, longterm, rehab)? @ -No Was there de-escalation of care discussed even if they declined (Discuss DNR or withdrawal of care, Hospice)? DNR status @ -No What co-morbidities impacted this encounter? (DM, HTN, Smoking, COPD, CAD, Cancer, CVA, ARF, Chemo, Hep., AIDS, mental health diagnosis, sleep apnea, morbid obesity)? @ -None Was patient admitted / discharged? Hospital course, mention meds given and route, prescriptions, significant lab abnormalities, going to OR and other pert inent info. @ -Charge patient advised he needs to follow-up outpatient for any further medications. Return parens discussed. Undiagnosed new problem with uncertain prognosis? @ -No Drug Therapy requiring intensive monitoring for toxicity (Heparin, Nitro, Insulin, Cardizem)? @ -No Were any procedures done? @ -No Diagnosis/symptom? @ -Medication refill back pain Acute, or Chronic, or Acute on Chronic? @ -Acute Uncomplicated (without systemic symptoms) or Complicated (systemic symptoms)? @ -Uncomplicated Side effects of treatment? @ -No Exacerbation, Progression, or Severe Exacerbation? @ -No Poses a threat to life or bodily function? How? (Chest pain, [place], [place], pneumonia, PE, COPD, DKA, ARF, appy, cholecystitis, CVA, Diverticulitis, Homicidal, Suicidal, threat to staff... and all critical care pts) @ -No Disposition Clinical Impression: Back pain Disposition: HOME SELF-CARE Condition: Stable Additional Instructions: Please return to the Emergency Department if symptoms worsen or any other concerns. Prescriptions: oxyCODONE HCL/ACETAMINOPHEN [oxyCODONE HCL/ACETAMINOPHEN 5-325] 1 tab PO Q8H 3 Days #9 tab Is patient prescribed a controlled substance at d/c from ED?: Yes When asked, does pt state using other controlled substances?: No If prescribed controlled substance>3 days was MAPS reviewed?: Prescribed <3 Days If opioid is for acute pain is fill amount 7 days or less?: Yes If Rx opioid, was Start Talking consent form obtained?: Yes Referrals: Dallas Brennan MD [Primary Care Provider] - 1-2 days Time of Disposition: 10:21
== END 2024-05-17 10:43 | disposition home or self-care (01) ==
LOC: EC 10:01
DX: M54.9 Dorsalgia, unspecified (principal); Z76.0 Encounter for issue of repeat prescription; Z87.891 Personal history of nicotine dependence
CPT/HCPCS: 99281